=== PATIENT | male | born 1940 | race Caucasian/White ===

== ENCOUNTER → 2021-10-01 | Outpatient (CLI) | payer BC ==
[2021-10-03 13:34] LABS: Stool Occult Bld Immuno 1 Negative (NEGATIVE)
== END | disposition home or self-care (01) ==
LOC: LAB 10:00 → LAB SHORT 10:00
PROVIDERS: Nurse Practitioner Family
DX: R79.9 Abnormal finding of blood chemistry, unspecified (principal)
CPT/HCPCS: G0328

== ENCOUNTER 2023-02-27 10:14 | Emergency (ER) | payer BC ==
[~2023-02-27] VITALS: Ht 172.7 cm; Wt 107.5 kg
[2023-02-27 12:30] LABS: BASOPHILS ABSOLUTE AUTO 0.05 K/mm3 (0.00-0.23); BASOPHILS PERCENT AUTO 1 % (0-2); EOSINOPHILS ABSOLUTE AUTO 0.17 K/mm3 (0.00-0.68); EOSINOPHILS PERCENT AUTO 2 % (0-6); Hematocrit 38.9 % (37.0-53.0); IMMATURE GRAN PERCENT AUTO 1 % (0-1); LYMPHOCYTES PERCENT AUTO 21 % (21-46); MONOCYTES ABSOLUTE AUTO 0.78 K/mm3 (0.16-1.47); MONOCYTES PERCENT AUTO 7 % (4-13); Mean Corpuscular HGB 31.2 pg (26.0-34.0); Mean Corpuscular HGB Conc 33.4 g/dL (31.5-36.5); Mean Corpuscular Volume 93 fL (80-100); Mean Platelet Volume 9.9 fL (9.1-12.4); NEUTROPHILS ABSOLUTE AUTO 7.52 K/mm3 (1.96-9.15); NEUTROPHILS PERCENT AUTO 69 % (41-73); Platelet Count 390 K/mm3 (150-400); RDW Coefficient Variation 12.5 % (11.7-14.2); RDW Standard Deviation 43.2 fL (35.1-46.3); Red Blood Cell Count 4.17 M/mm3 (4.30-5.90); White Blood Cell Count 10.92 K/mm3 (4.00-11.30)
[2023-02-27 12:46] LABS: Albumin, Blood 3.8 g/dL (3.4-5.0); Albumin/Globulin Ratio 0.9 (0.8-1.8); Bilirubin, Total 0.6 mg/dL (0.1-1.0); Bun/Creatinine Ratio 34.4 (12.0-20.0); Calcium, Blood 9.3 mg/dL (8.5-10.1); Creatinine, Blood 1.28 mg/dL (0.60-1.20); Globulin, Blood 4.2 g/dL (2.2-4.0); Potassium, Blood 4.1 mmol/L (3.5-5.5)
[2023-02-27 14:30] VITALS: BP 154/88
== END 2023-02-27 14:31 | disposition home or self-care (01) ==
LOC: ER 10:14
PROVIDERS: Student in an Organized Health Care Education/Training Program
DX: R00.1 Bradycardia, unspecified (principal); R00.8 Other abnormalities of heart beat; I44.0 Atrioventricular block, first degree; Z88.2 Allergy status to sulfonamides
CPT/HCPCS: 71046; 80053; 85025; 93005; 93010; 93246; 99284-25

== ENCOUNTER 2023-03-02 08:00 | Emergency (ER) | payer BC ==
[~2023-03-02] VITALS: Ht 172.7 cm; Wt 107.5 kg
[2023-03-02] MEDS ORDERED: NEURONTIN300 MG PO (09:50)
[2023-03-02] MEDS ORDERED: Simvastatin20 MG PO (09:50)
[2023-03-02] MEDS ORDERED: ATENOLOL25 MG PO (09:50)
[2023-03-02] MEDS ORDERED: VALSARTAN320 MG PO (09:50)
[2023-03-02 10:11] LABS: BASOPHILS ABSOLUTE AUTO 0.04 K/mm3 (0.00-0.23); BASOPHILS PERCENT AUTO 0 % (0-2); EOSINOPHILS PERCENT AUTO 1 % (0-6); Hemoglobin 13.8 g/dL (13.5-17.5); IMMATURE GRAN ABSOLUTE AUTO 0.04 K/mm3 (0.00-0.10); IMMATURE GRAN PERCENT AUTO 0 % (0-1); LYMPHOCYTES ABSOLUTE AUTO 1.69 K/mm3 (0.84-5.20); LYMPHOCYTES PERCENT AUTO 18 % (21-46); MONOCYTES ABSOLUTE AUTO 0.65 K/mm3 (0.16-1.47); MONOCYTES PERCENT AUTO 7 % (4-13); Mean Corpuscular HGB 30.9 pg (26.0-34.0); Mean Corpuscular HGB Conc 33.7 g/dL (31.5-36.5); Mean Corpuscular Volume 92 fL (80-100); Mean Platelet Volume 9.8 fL (9.1-12.4); NEUTROPHILS ABSOLUTE AUTO 7.07 K/mm3 (1.96-9.15); NEUTROPHILS PERCENT AUTO 74 % (41-73); Platelet Count 357 K/mm3 (150-400); RDW Coefficient Variation 12.5 % (11.7-14.2); Red Blood Cell Count 4.46 M/mm3 (4.30-5.90); White Blood Cell Count 9.59 K/mm3 (4.00-11.30)
[2023-03-02 10:29] LABS: Albumin/Globulin Ratio 0.9 (0.8-1.8); Bilirubin, Total 0.7 mg/dL (0.1-1.0); Bun/Creatinine Ratio 21.8 (12.0-20.0); Calcium, Blood 9.3 mg/dL (8.5-10.1); Creatinine, Blood 1.01 mg/dL (0.60-1.20); Globulin, Blood 4.3 g/dL (2.2-4.0); Potassium, Blood 3.9 mmol/L (3.5-5.5); Total Protein, Blood 8.3 g/dL (6.4-8.2)
[2023-03-02] MEDS ORDERED: AMIODARONE HCL100 M1 PO (11:36)
[2023-03-02] MEDS ORDERED: ELIQUIS5 MG PO (11:36)
[2023-03-02 14:30] VITALS: BP 138/61
== END 2023-03-02 14:47 | disposition home or self-care (01) ==
LOC: ER 08:00
PROVIDERS: Physician Assistant
DX: I48.0 Paroxysmal atrial fibrillation (principal); I49.5 Sick sinus syndrome; E11.9 Type 2 diabetes mellitus without complications; Z79.01 Long term (current) use of anticoagulants; Z79.84 Long term (current) use of oral hypoglycemic drugs; Z79.899 Other long term (current) drug therapy; Z88.2 Allergy status to sulfonamides
CPT/HCPCS: 80053; 85025; 93005; 93010; 96365; 96366; 96375; 99285-25; J0282

== ENCOUNTER 2023-04-07 09:20 | Inpatient (IN) | payer MEDICARE, BC ==
[2023-04-07] VITALS (7 sets, daily range): BP systolic 110–180; BP diastolic 51–79
[~2023-04-07] VITALS: Ht 180.3 cm; Wt 81.7 kg
[~2023-04-07 09:20] MED LIST: AMIODARONE HCL100 M1 PO; ATENOLOL25 MG PO; ELIQUIS5 MG PO; NEURONTIN300 MG PO; Simvastatin20 MG PO; VALSARTAN320 MG PO
[2023-04-07 10:13] LABS: BASOPHILS ABSOLUTE AUTO 0.04 K/mm3 (0.00-0.23); BASOPHILS PERCENT AUTO 0 % (0-2); EOSINOPHILS ABSOLUTE AUTO 0.25 K/mm3 (0.00-0.68); EOSINOPHILS PERCENT AUTO 2 % (0-6); Hematocrit 39.3 % (37.0-53.0); Hemoglobin 13.4 g/dL (13.5-17.5); IMMATURE GRAN ABSOLUTE AUTO 0.07 K/mm3 (0.00-0.10); IMMATURE GRAN PERCENT AUTO 1 % (0-1); LYMPHOCYTES ABSOLUTE AUTO 1.33 K/mm3 (0.84-5.20); LYMPHOCYTES PERCENT AUTO 11 % (21-46); MONOCYTES ABSOLUTE AUTO 0.62 K/mm3 (0.16-1.47); MONOCYTES PERCENT AUTO 5 % (4-13); Mean Corpuscular HGB 30.9 pg (26.0-34.0); Mean Corpuscular HGB Conc 34.1 g/dL (31.5-36.5); Mean Corpuscular Volume 91 fL (80-100); Mean Platelet Volume 9.4 fL (9.1-12.4); NEUTROPHILS ABSOLUTE AUTO 9.31 K/mm3 (1.96-9.15); NEUTROPHILS PERCENT AUTO 80 % (41-73); Platelet Count 295 K/mm3 (150-400); RDW Coefficient Variation 12.5 % (11.7-14.2); RDW Standard Deviation 41.8 fL (35.1-46.3); Red Blood Cell Count 4.34 M/mm3 (4.30-5.90); White Blood Cell Count 11.62 K/mm3 (4.00-11.30)
[2023-04-07] MEDS ORDERED: METFORMIN HCL500 M2 PO (10:34)
[2023-04-07] MEDS ORDERED: CYMBALTA30 M2 PO (10:34)
[2023-04-07] MEDS ORDERED: HYDCHL25 PO (10:35)
[2023-04-07 10:39] LABS: Albumin, Blood 3.8 g/dL (3.4-5.0); Bilirubin, Total 0.7 mg/dL (0.1-1.0); Bun/Creatinine Ratio 22.4 (12.0-20.0); Calcium, Blood 9.1 mg/dL (8.5-10.1); Creatinine, Blood 1.07 mg/dL (0.60-1.20); Globulin, Blood 3.9 g/dL (2.2-4.0); Total Protein, Blood 7.7 g/dL (6.4-8.2)
[2023-04-07] MEDS ORDERED: OxyCODONE HCL 5 MG TAB PO PRN (12:55)
[2023-04-07] MEDS ORDERED: FLU VACC QS2023-24(6MOS UP)/PF 60 MCG/0.5 ML SYRINGE IM ONE (13:00)
[2023-04-07] MEDS ORDERED: Acetaminophen 325 MG TABLET PO PRN (13:00)
[2023-04-07] MEDS ORDERED: Ondansetron HCl 2 MG / ML 2ML Vial IV PRN (13:00)
[2023-04-07] MEDS ORDERED: AMIODARONE HCL100 M3 PO ×2 (14:32→18:45)
[2023-04-07] MEDS ORDERED: ELIQUIS5 M2 PO (14:33)
[2023-04-07] MEDS ORDERED: Diovan320 MG PO (14:34)
[2023-04-07] MEDS ORDERED: DULO30 PO (14:35)
[2023-04-07] MEDS ORDERED: METF500 PO (14:35)
--- NOTE | 2023-04-07 15:08 | NUR ---
ADMIT PT REPORT RECEIVED FROM ER. PT ARRIVED VIA GURNEY ACCOMPANIED BY STAFF AND FAMILY. PT IMPULSIVE. TREID TO CLIMB OFF THE GURNEY WITH IT LIFTED UP TWICE. EVEN WITH VERBAL DIRECTION FROM STAFF. WIFER BROUGHT PT WALKER. IT'S BRIGHT RED. PT REFUSED TO CHANGE OUT OF STREET CLOTHES. HE DID TAKE SHOES OFF. PROVIDED A HALF TURKEY SANDWHICH AND ICE WATER. FAMILY WILL BRING IN PILL BOTTLES TO VERIFY MEDICATIONS. PT UNCLEAR ABOUT WHAT HE TAKES. CARE ONGOING.
--- NOTE | 2023-04-07 15:31 | NUR ---
NOTE WALKED IN TO PLACE AN ARM BAND ON PT HOME WALKER. FOUND PT UP IN THE BATHROOM. HE HAD NOT CALLED FOR HELP TO GET UP. STARTED LAUGHING BECAUSE HE HAD BEEN CAUGHT. SBA BACK TO BED WITH FWW. GAIT SLOW, STEADY. HE HAS TROUBLE STANDING UP FROM THE TOILET. TALKED WITH HIM ABOUT FALL SAFETY AND THE NEED TO CALL UNTIL WE KNOW HE WON'T PASS AOUT AGAIN. TURNED ON BED ALARM. EXPLAINED TO FAMILY/PT ABOUT BED ALARM. CALL DON'T FALL EXPLAINED AGAIN. CARE ONGOING.
[2023-04-07] MEDS ORDERED: Insulin Regular 100 Unit/ML 1ML Dose SC SCH (16:30)
--- NOTE | 2023-04-07 16:57 | NUR ---
NOTE PT VISITING WITH FAMILY AT BEDSIDE. BED ALARM ON. TELEMETRY NSR RATE 70'S. VSS. LEFT FOREHEAD ABRASION STABLE. WEAK WHEN UP. USING HIS HOME WALKER. H/L. RA. BED LOW AND LOCKED. CALL LIGHT WITH INREACH. PT ENCOURAGED TO USE THE CALL LIGHT FOR SAFETY. CARE ONGOING.
[2023-04-07] MEDS ORDERED: Sennosides 8.6 MG Tab PO SCH (21:00)
[2023-04-07] MEDS ORDERED: Atorvastatin 10 MG Tab PO SCH (21:00)
--- NOTE | 2023-04-07 22:23 | NUR ---
PATIENT UP TO BATHROOM FOR A SPONGE BATH, USE THE RESTROOM AND CHANGE. PATIENT HAD USED THE RESTROOM, BRUSHED HIS TEETH, AND STARTED TO GET CHNAGED. UPON GETTING CHNAGED THE PATIENT STARTED TO FEEL "OFF AND NOT SO GOOD", AT THIS TIME PATIENT WAS UNHOOKED FROM TELEMETRY. VITALS SIGN WERE OBTAINED PATIENTS VITAL SIGNS AT THIS TIME; 114/60 WITH A PULSE OF 38 VIA MACHINE, MANUAL PULSE TAKEN WITH RATE OF 41. DURING THIS PATIENT WAS STILL HOOKED TO VITALS MACHINE. PULSE JUMPED UP TO 87, PATIENT BECAME NAUSEOUS AND VOMTTING. PATIENT FEELING "DIZZY, HEAD SPINNING AND JUST FELT OUT OF IT; UNABLE TO EXACTLY DESCRIBE HOW HE FELT". PATIENT WHEELED BACK TO BED VIA HIS WHEELED WALKER AND TWO PERSON ASSIST. ORTHOSTATICS OBTAINED AT THIS TIME: LYING- B/P: 154/76 PULSE: 86 MAP: 93 SITTING- B/P: 115/65 PULSE: 91 MAP: 81 STANDING- 110/51 PULSE: 95 MAP: 66 DISCUSSED WITH PATIENT USE OF A URINAL AT NIGHT AND THE USE OF THE BEDSIDE COMMODE IF WEAKNESS AND/OR SYMPTOMS RETURN WHEN UP. PATIENT IS AGREEABLE.
--- NOTE | 2023-04-07 22:50 | NUR ---
HOSPITALIST CONTACTED. HOSPITALIST CONTACTED D/T SNYCOPE WITH PATIENT; SEE PREVIOUS NOTE. HOSPITALIST SHELBY RODRIGUEZ, ORDERED FOR PATIENT TO BE ON STRICT TELE-NO REMOVAL FOR SHOWERS AND TO HAVE NS 1000ML'S AT 200ML/HR [id number].
[2023-04-07] MEDS ORDERED: NS 1,000 ML IV SCH (23:00)
[2023-04-08 02:37] VITALS: BP 162/73
[2023-04-08 04:17] LABS: BASOPHILS ABSOLUTE AUTO 0.04 K/mm3 (0.00-0.23); BASOPHILS PERCENT AUTO 0 % (0-2); EOSINOPHILS ABSOLUTE AUTO 0.18 K/mm3 (0.00-0.68); EOSINOPHILS PERCENT AUTO 2 % (0-6); Hematocrit 35.1 % (37.0-53.0); Hemoglobin 11.5 g/dL (13.5-17.5); IMMATURE GRAN ABSOLUTE AUTO 0.07 K/mm3 (0.00-0.10); IMMATURE GRAN PERCENT AUTO 1 % (0-1); LYMPHOCYTES ABSOLUTE AUTO 1.33 K/mm3 (0.84-5.20); LYMPHOCYTES PERCENT AUTO 12 % (21-46); MONOCYTES ABSOLUTE AUTO 0.88 K/mm3 (0.16-1.47); MONOCYTES PERCENT AUTO 8 % (4-13); Mean Corpuscular HGB 30.7 pg (26.0-34.0); Mean Corpuscular HGB Conc 32.8 g/dL (31.5-36.5); Mean Corpuscular Volume 94 fL (80-100); Mean Platelet Volume 9.6 fL (9.1-12.4); NEUTROPHILS PERCENT AUTO 77 % (41-73); Platelet Count 261 K/mm3 (150-400); RDW Coefficient Variation 12.6 % (11.7-14.2); RDW Standard Deviation 43.6 fL (35.1-46.3); Red Blood Cell Count 3.75 M/mm3 (4.30-5.90)
[2023-04-08 04:31] LABS: Bun/Creatinine Ratio 20.8 (12.0-20.0); Calcium, Blood 8.8 mg/dL (8.5-10.1); Creatinine, Blood 1.01 mg/dL (0.60-1.20)
--- NOTE | 2023-04-08 05:28 | NUR ---
SHIFT SUMMARY. PATIENT ALERT AND ORIENTED X4. PATIENT HAD EPISODE IF SYNCOPE TONIGHT ; SEE PREVIOUS NOTES. PATIENTS DAUGHTER IN AT BEDSIDE T/O NIGHT. PATIENT STANDING AT BEDSIDE TO USE THE URINAL WITH 1P ASSIST. PATIENT IS ABLE TO MAKE HIS NEEDS KNOWN AND CALLS APPROPRIATELY. PATIENT TOLERATED IV FLUIDS WELL. PATIENT IS OF PLESANT AFFECT. PATIENT IS A 1P ASSIST WITH A WALKER. PATIENT ANXIOUS TO FIGURE OUT WHAT IS CAUSING HIS SYNCOPE. PATIENTS BED IS LOCKED IN THE LOWEST POSITION WITH CALL LIGHT AND URINAL IN REACH. NO S/S OF DISTRESS NOTED AT THIS TIME. CARE IS ONGOING.
[2023-04-08 08:13] VITALS: BP 163/66
[2023-04-08] MEDS ORDERED: Losartan Potassium 50 MG Tab PO SCH (09:00)
[2023-04-08] MEDS ORDERED: Amiodarone HCl 200 MG Tab PO SCH (09:00)
[2023-04-08] MEDS ORDERED: HydroCHLOROthiazide 25 mg Tab PO SCH (09:00)
[2023-04-08] MEDS ORDERED: DULoxetine HCL 30 MG Cap DR PO SCH (09:00)
[2023-04-08] MEDS ORDERED: Insulin Human Lispro 100 Units/ML 3ML Syringe SC SCH (16:30)
[2023-04-08 16:40] VITALS: BP 171/78
[2023-04-08] MEDS ORDERED: Famotidine 20 MG Tab PO PRN (17:55)
[2023-04-08 18:43] VITALS: BP 182/84
[2023-04-08] MEDS ORDERED: HydrALAZINE HCl 10 MG Tab PO PRN (18:50)
--- NOTE | 2023-04-08 19:24 | NUR ---
SHIFT SUMMARY PT AXO, PLEASANT AND COOPERATIVE WITH CARE. PT MEDICATED FOR PAIN PER EMAR. PT IS TO BE NPO AT MIDNIGHT TONIGHT. PT ALSO NEEDS A CAST BOOT PER DR. TREVINO AND CAN BE PARTIAL WEIGHT BEARING WITH CAST BOOT. CENTRAL SUPPLY NOT AVAILABLE. DR Roberto STATED THAT IF PATIENT DOESN'T HAVE A CAST BOOT BY TOMORROW, THEN TO CALL HIS OFFICE TO HAVE SOMEONE BRING ONE OVER. CARDIOLOGY CONSULTED, POSSIBLE LOOP RECORDER PLACEMENT PER DR SANTANA. PT COMPLAINED OF FEELING SYMPTOMATIC AT 1843. THIS NURSE MEASURED VS, DR PHILIP NOTIFIED AND MEDICATION FOT HTN ORDERED, SEE APR. TOBACCO PACKING MACHINE OPERATOR CALLED AND PT WAS RUNNING NSR IN 80'S AND THEREFOR NO EKG INDICATED AT THAT TIME. REPORT GIVEN TO LENS BLANK GAUGER NURSE WHO ASSUMES CARE AT THIS TIME. BED IN LOW POSITION, CALL LIGHT WITHIN REACH.
[2023-04-08 20:05] VITALS: BP 172/75
[2023-04-08] MEDS ORDERED: Fluticasone 0.05% Nasal Spray SCH (21:00)
[2023-04-09 05:11] VITALS: BP 159/64
[2023-04-09 05:44] LABS: BASOPHILS ABSOLUTE AUTO 0.04 K/mm3 (0.00-0.23); BASOPHILS PERCENT AUTO 0 % (0-2); EOSINOPHILS ABSOLUTE AUTO 0.32 K/mm3 (0.00-0.68); EOSINOPHILS PERCENT AUTO 3 % (0-6); Hematocrit 35.3 % (37.0-53.0); IMMATURE GRAN ABSOLUTE AUTO 0.05 K/mm3 (0.00-0.10); IMMATURE GRAN PERCENT AUTO 1 % (0-1); LYMPHOCYTES ABSOLUTE AUTO 1.71 K/mm3 (0.84-5.20); LYMPHOCYTES PERCENT AUTO 18 % (21-46); MONOCYTES ABSOLUTE AUTO 0.79 K/mm3 (0.16-1.47); MONOCYTES PERCENT AUTO 8 % (4-13); Mean Corpuscular HGB 31.4 pg (26.0-34.0); Mean Corpuscular Volume 92 fL (80-100); Mean Platelet Volume 9.9 fL (9.1-12.4); NEUTROPHILS ABSOLUTE AUTO 6.52 K/mm3 (1.96-9.15); NEUTROPHILS PERCENT AUTO 69 % (41-73); Platelet Count 252 K/mm3 (150-400); RDW Coefficient Variation 12.7 % (11.7-14.2); RDW Standard Deviation 43.1 fL (35.1-46.3); Red Blood Cell Count 3.82 M/mm3 (4.30-5.90); White Blood Cell Count 9.43 K/mm3 (4.00-11.30)
[2023-04-09 06:08] LABS: Bun/Creatinine Ratio 20.5 (12.0-20.0); Calcium, Blood 8.9 mg/dL (8.5-10.1); Creatinine, Blood 0.93 mg/dL (0.60-1.20); Magnesium, Blood 2.3 mg/dL (1.6-2.4); Potassium, Blood 4.1 mmol/L (3.5-5.5)
--- NOTE | 2023-04-09 07:41 | NUR ---
IN AT BEDSIDE TO TALK WITH PATIENT AND GO OVER CONSENT FOR LOOP RECORDER PLACEMENT TODAY. THIS RN CALLED AND TALKED WITH POLLUTION CONTROL TECHNICIAN TO NOTIFY THAT PATIENTS SIGNED CONSENT FORM IS WITH PATIENT FOR TODAYS PROCEDURE. PATIENT IS 4TH ON THE LIST AT THE POLLUTION CONTROL TECHNICIAN PER POLLUTION CONTROL TECHNICIAN.
[2023-04-09 07:49] VITALS: BP 182/83
[2023-04-09] MEDS ORDERED: NS 250 ML IV ONE (14:43)
[2023-04-09] MEDS ORDERED: CeFAZolin Sodium 1000 mg Vial ONE (14:43)
[2023-04-09 15:51] VITALS: BP 175/70
--- NOTE | 2023-04-09 18:00 | NUR ---
SHIFT SUMMARY PT A&OX4, VSS, TRANSFERRING W/ A 2P ASSIST, TOLERATING PO, VOIDING, AND PAIN MANAGED PER EMAR. PT HAD LOOP RECORDER PLACED IN THE CIGARETTE EXAMINER THIS SHIFT. WHILE IN PROCEDURE, [employer] DELIVERED THE L LEG ORTHO BOOT. CALL LIGHT WITHIN REACH AND PT ABLE TO MAKE NEEDS KNOWN.
[2023-04-09] MEDS ORDERED: AmLODIPine Besylate 5 MG Tab PO SCH (21:00)
[2023-04-09 22:48] VITALS: BP 181/80
--- NOTE | 2023-04-10 05:19 | NUR ---
SHIFTT SUMMARY PT A&OX4 AND ANSWERS QUESTIONS APPROPRIATLY. PT INDEPENDENTLY GAVE HIMSELF A BED BATH. PT RECEIVED HS MEDICATIONS. PT HAS FAMILY MEMBER AT BEDSIDE. PT SLEPT MOST OF SHIFT WITH EYES CLOSED AND RESPIRATIONS EVEN AND UNLABORED. NO COMPLAINTS OF SOB OR CP, VSS. NO ACUTE EVENTS AT THIS TIME. PT LEFT IN A POSITION OF SAFETY WITH APPROPRIATE FALL PRECAUTIONS IN PLACE AND CALL LIGHT IN REACH.
[2023-04-10 05:35] VITALS: BP 165/74
[2023-04-10 07:25] VITALS: BP 165/82
[2023-04-10] MEDS ORDERED: HydroCHLOROthiazide 25 mg Tab PO SCH (09:00)
[2023-04-10] MEDS ORDERED: Losartan Potassium 50 MG Tab PO SCH (09:00)
[2023-04-10] MEDS ORDERED: Acetaminophen325 M1 PO (14:22)
[2023-04-10] MEDS ORDERED: Amlodipine Bes2.5 MG PO (14:23)
--- NOTE | 2023-04-10 16:06 | NUR ---
DISCHARGE SUMMARY: PT DISCHARGED HOME WITH HOME HEALTH. INSTRUCTED PT AND FAMILY ON DISCHARGE INSTRUCTIONS AND MEDICATIONS. ADVISED TO MONITOR BLOOD PRESSURES AND WRITE DOWN AND TAKE TO DR. ODLL. PT HAS INSTRUCTIONS ON LOOP RECORDER INSTRUCTIONS AND REPEATED INSTRUCTIONS BACK HE HAD LEARNED FROM PRIOR INSTRUCTION. PT ASSISTED WITH GETTING DRESSED BY FOLLOWING WEIGHT BEARING PRECAUTIONS. PT ASSISTED WITH PACKING BELONGINGS AND ESCORTED TO POV WITH VIA WHEELCHAIR BY MERCHANDISE TEAM MANAGER.
== END 2023-04-10 15:15 | disposition home health service (06) | DRG 261 ==
LOC: ER 09:20 → MEDS 09:21
PROVIDERS: Student in an Organized Health Care Education/Training Program; ADMIT Internal Medicine
PROC: 0JH602Z Insertion of Monitoring Device into Chest Subcutaneous Tissue and Fascia, Open Approach (ICD-10-PCS; principal; 2023-04-09)
DX: I49.5 Sick sinus syndrome (principal); E87.1 Hypo-osmolality and hyponatremia; R55 Syncope and collapse; I48.0 Paroxysmal atrial fibrillation; I44.0 Atrioventricular block, first degree; S82.862A Displaced Maisonneuve's fracture of left leg, initial encounter for closed fracture; W18.30XA Fall on same level, unspecified, initial encounter; E11.40 Type 2 diabetes mellitus with diabetic neuropathy, unspecified; I10 Essential (primary) hypertension; G47.33 Obstructive sleep apnea (adult) (pediatric); E78.2 Mixed hyperlipidemia; F32.A Depression, unspecified; E55.9 Vitamin D deficiency, unspecified; M51.16 Intervertebral disc disorders with radiculopathy, lumbar region; D64.9 Anemia, unspecified; E66.9 Obesity, unspecified; Z79.01 Long term (current) use of anticoagulants; Z79.84 Long term (current) use of oral hypoglycemic drugs; Y92.012 Bathroom of single-family (private) house as the place of occurrence of the external cause; Z68.25 Body mass index [BMI] 25.0-25.9, adult; Z28.21 Immunization not carried out because of patient refusal
CPT/HCPCS: 33285; 36415; 70450; 73562-LT; 73700; 80048; 80053; 82947; 83735; 84443; 84484; 85025; 93005; 93010; 93306; 93970; 94760; 96361; 96374; 97116; 97162; 97530; 99285-25; A9270; C1764; G0378; J0690; J2405; J7030; J7050

== ENCOUNTER 2023-06-30 07:53 | Emergency (ER) | payer BC ==
[~2023-06-30] VITALS: Ht 172.7 cm; Wt 98.4 kg
[~2023-06-30 07:53] MED LIST changes: +AMIODARONE HCL100 M3 PO; +Acetaminophen325 M1 PO; +Amlodipine Bes2.5 MG PO; +CYMBALTA30 M2 PO; +DULO30 PO; +Diovan320 MG PO; +ELIQUIS5 M2 PO; +HYDCHL25 PO; +METF500 PO; +METFORMIN HCL500 M2 PO
[2023-06-30] MEDS ORDERED: ZOCOR20 MG PO (08:04)
[2023-06-30] MEDS ORDERED: NS 1,000 ML IV SCH (08:10)
[2023-06-30 08:21] LABS: BASOPHILS ABSOLUTE AUTO 0.05 K/mm3 (0.00-0.23); BASOPHILS PERCENT AUTO 0 % (0-2); EOSINOPHILS ABSOLUTE AUTO 0.26 K/mm3 (0.00-0.68); EOSINOPHILS PERCENT AUTO 2 % (0-6); Hematocrit 36.3 % (37.0-53.0); IMMATURE GRAN ABSOLUTE AUTO 0.05 K/mm3 (0.00-0.10); IMMATURE GRAN PERCENT AUTO 0 % (0-1); LYMPHOCYTES ABSOLUTE AUTO 1.88 K/mm3 (0.84-5.20); LYMPHOCYTES PERCENT AUTO 13 % (21-46); MONOCYTES PERCENT AUTO 5 % (4-13); Mean Corpuscular HGB 30.8 pg (26.0-34.0); Mean Corpuscular HGB Conc 33.1 g/dL (31.5-36.5); Mean Corpuscular Volume 93 fL (80-100); Mean Platelet Volume 9.8 fL (9.1-12.4); NEUTROPHILS ABSOLUTE AUTO 11.79 K/mm3 (1.96-9.15); NEUTROPHILS PERCENT AUTO 80 % (41-73); Platelet Count 290 K/mm3 (150-400); RDW Coefficient Variation 13.2 % (11.7-14.2); RDW Standard Deviation 44.9 fL (35.1-46.3); White Blood Cell Count 14.83 K/mm3 (4.00-11.30)
[2023-06-30 08:33] LABS: Albumin, Blood 3.3 g/dL (3.4-5.0); Bilirubin, Total 0.7 mg/dL (0.1-1.0); Bun/Creatinine Ratio 16.8 (12.0-20.0); Calcium, Blood 8.7 mg/dL (8.5-10.1); Creatinine, Blood 1.07 mg/dL (0.60-1.20); Globulin, Blood 3.3 g/dL (2.2-4.0); Magnesium, Blood 2.1 mg/dL (1.6-2.4); Potassium, Blood 3.9 mmol/L (3.5-5.5); Total Protein, Blood 6.6 g/dL (6.4-8.2)
[2023-06-30 09:31] VITALS: BP 167/76
== END 2023-06-30 09:45 | disposition home or self-care (01) ==
LOC: ER 07:53
PROVIDERS: Emergency Medicine
DX: R55 Syncope and collapse (principal); Z88.2 Allergy status to sulfonamides; Z79.899 Other long term (current) drug therapy; E11.42 Type 2 diabetes mellitus with diabetic polyneuropathy; I10 Essential (primary) hypertension; E78.2 Mixed hyperlipidemia; I48.91 Unspecified atrial fibrillation
CPT/HCPCS: 80053; 83735; 85025; 93005; 93010; J7030